=== PATIENT | male | born 1990 | race Caucasian/White ===

== ENCOUNTER 2020-12-19 13:23 | Inpatient (IN) | payer BC, OTHER ==
[~2020-12-19] VITALS: Ht 180.3 cm; Wt 83.1 kg
--- NOTE | ~2020-12-19 | O ---
[facility] [place] [address] OPERATIVE REPORT Name: BECCA LEON Room #: 448-P [facility] IN M.R.#: [id number] Admission: 12/19/20 Attend Phys: Ysair Modi MD Discharge: Date of : 89 Report #: [id number] THIS REPORT FOR: cc: Sienna Sanchez NP, Margaret NP Patterson, Jonathan D. MD ~ PREOPERATIVE DIAGNOSIS: Chronic cholecystitis. POSTOPERATIVE DIAGNOSIS: Chronic cholecystitis. OPERATION: Laparoscopic cholecystectomy. SURGEON: Krishna Li MD ANESTHESIA: General. ESTIMATED BLOOD LOSS: Minimal. SPECIMEN: Gallbladder. DESCRIPTION OF PROCEDURE: After informed consent was obtained, the patient was brought to the operating room and placed supine. SCDs were placed and working, preoperative antibiotics were administered, general anesthesia was induced. The abdomen was prepped and draped in the usual sterile fashion. A 10 mm incision was made below the umbilicus. Fascia was incised and a trocar was placed. Pneumoperitoneum was established. Three right upper quadrant 5 mm ports were placed under direct vision. The patient was placed in the reverse Trendelenburg position. The gallbladder was then grasped and retracted cephalad. Infundibulum was grasped and retracted laterally. I dissected out the cystic duct and cystic artery. Cystic plate was identified. Cystic duct and artery were clipped and ligated leaving 2 clips on the remaining duct and one on the remaining artery. Gallbladder was then taken off the liver bed with electrocautery. It was placed into an Endopouch and removed. The fascia was then closed with a ampagh-ul-lezgb 0 Vicryl. Skin was closed with 4-0 Monocryl. Incisions were sealed with Dermabond. COMPLICATIONS: None. DISPOSITION: The patient was taken to recovery in satisfactory condition. By: 1542 1550 Krishna Li MD /nt
[2020-12-19 13:26] VITALS: BP 163/116
[2020-12-19 14:12] LABS: ABSOLUTE NEUTROPHILS 8.5 thou/uL (1.4-8.2); BASOPHILS 0.3 % (0.0-2.0); EOSINOPHILS 0.3 % (0.0-3.0); HEMATOCRIT 44.6 % (42.0-52.0); HEMOGLOBIN 14.7 gm/dL (14.0-18.0); LYMPHOCYTES 14.5 % (24.0-44.0); MCH 30.4 pg (26.0-34.0); MONOCYTES 7.9 % (1.0-8.0); PLATELET COUNT 230 thou/uL (150-400); RBC 4.85 mil/uL (4.50-6.00); RDW 12.9 % (10.5-14.5); WBC 11.1 thou/uL (4.0-11.0)
[2020-12-19 14:23] LABS: CALCIUM 9.6 mg/dL (8.5-10.1); POTASSIUM 3.7 mmol/L (3.5-5.1)
[2020-12-19 14:29] LABS: ALBUMIN 4.6 g/dL (3.4-5.0); APTT 26.6 Seconds (24.5-32.8); PROTIME 10.7 Seconds (9.3-11.4); TOTAL BILIRUBIN 0.5 mg/dL (0.2-1.0); TOTAL PROTEIN 7.5 g/dL (6.4-8.2)
--- NOTE | 2020-12-19 14:33 | EKG ---
[place] [address] [address] [place] [address] ELECTROCARDIOGRAM REPORT Name: BECCA LEON [id number] Admission: 12/19/20 Attend Phys: Discharge: Date of : 89 Report #: [id number] [facility] ED Test Date: 2020-12-19 Test Time: 14:15:09 Pat Name: BECCA LEON Department: Room: Gender: Phlebotomy Director: : 1990 Requested By: Lissette Chavis Order Number: [id number] MD: Gurjit Bunch Measurements Intervals Corea Rate: 92 P: 71 CO: 149 QRS: 56 QRSD: 86 T: 29 QT: 349 QTc: 432 Interpretive Statements Sinus rhythm No previous ECG available for comparison Electronically Signed On 12-19-2020 14:33:35 SENIOR ENGINEERING TECH by Gurjit Bunch [email or web address] <ELECTRONICALLY SIGNED> By: Gurjit Bunch MD, [facility] 12/19/20 1433 1415 1415 Gurjit Bunch MD, FACC /EPI
[2020-12-19 17:01] LABS: URINE BILIRUBIN NEGATIVE (Negative); URINE BLOOD NEGATIVE (Negative); URINE CLARITY CLEAR; URINE COLOR YELLOW; URINE GLUCOSE-RANDOM* NEGATIVE (Negative); URINE KETONES NEGATIVE (Negative); URINE LEUKOCYTES-REFLEX NEGATIVE (Negative); URINE NITRITE-REFLEX NEGATIVE (Negative); URINE PROTEIN (DIPSTICK) NEGATIVE (Negative); URINE SPECIFIC GRAVITY <= 1.005 (1.005-1.035); URINE UROBILINOGEN 0.2 E.U./dl (0.2-1.0)
[2020-12-19 18:21] LABS: FOLIC ACID 13.3 ng/mL (8.6-58.9)
[2020-12-19 19:53] VITALS: BP 128/77
[2020-12-19 20:00] VITALS: BP 127/92
[2020-12-19 20:40] VITALS: BP 132/74
--- NOTE | 2020-12-20 02:15 | NUR ---
PT ARRIVED FROM THE ER. A&OX4 C/0 ABD PAIN 7/10 MANAGED BY PO AND IV PAIN MEDS IV INTACT AND FLUIDS INFUSING. ADMISSION DONE AND PT ORIENTED TO THE UNIT. NPO AT MIDNIGHT FOR PIPIDA TEST TOMORROW. CALL LIGHT AT REACH AND WILL CONT TO MONITOR.
[2020-12-20 05:26] LABS: ABSOLUTE NEUTROPHILS 3.8 thou/uL (1.4-8.2); BASOPHILS 0.4 % (0.0-2.0); EOSINOPHILS 1.6 % (0.0-3.0); HEMATOCRIT 38.7 % (42.0-52.0); HEMOGLOBIN 12.8 gm/dL (14.0-18.0); LYMPHOCYTES 32.8 % (24.0-44.0); MONOCYTES 10.5 % (1.0-8.0); PLATELET COUNT 175 thou/uL (150-400); POLYS 54.7 % (36.0-66.0); RBC 4.12 mil/uL (4.50-6.00); WBC 6.9 thou/uL (4.0-11.0)
[2020-12-20 05:34] LABS: CALCIUM 8.4 mg/dL (8.5-10.1); CREATININE 0.9 mg/dL (0.7-1.3); MAGNESIUM 2.3 mg/dL (1.8-2.4); POTASSIUM 3.8 mmol/L (3.5-5.1)
[2020-12-20 07:47] VITALS: BP 139/69
--- NOTE | 2020-12-20 11:32 | NUR ---
ASSESSMENT-PT LIVES AT HOME WITH HIS AND PARENT. PT NOTMALLY INDEPENT OF ADLS, AMBULATION, WORKING AND DRIVING. NOW WITH CONSIDERABLE RIGHT QUAD PAIN. PT VOICES NO CONCERNS RELATED TO DISCHARGE. PT HAVING A PIPIDA SCAN TODAY.
[2020-12-20 15:41] VITALS: BP 124/83
--- NOTE | 2020-12-20 18:12 | NUR ---
ASSUMED PATIENT CARE AT 0700. PATIENT WENT TO PIPDA SCAN AT 1230 AND BACK TO UNIT AT 1420. PATIENT STILL HAS RUQ PAIN. NO NAUSEA. WAITING FOR TEST RESULT. WILL KEEP MONITOR.
[2020-12-20 20:15] VITALS: BP 128/81
[2020-12-21 08:44] VITALS: BP 118/77
--- NOTE | 2020-12-21 08:51 | NUR ---
RECEIVED CARE OF THIS PATIENT AT 1900. PATIENT ALERT AND ORIENTED X4. UP AD DA. C/O PAIN, MED GIVEN. NPO SINCE SD FOR POSSIBLE EGD TODAY. SLEPT MOST OF NIGHT.
[2020-12-21 15:44] VITALS: BP 132/85
[2020-12-21 17:08] VITALS: BP 149/95
--- NOTE | 2020-12-21 18:45 | NUR ---
PT ASSESSED AT START OF SHIFT. NPO FOR OR AT 1115. PT AT BEDSIDE. RETURNED AT 1515 ALERT AND IN MINIMAL DISCOMFORT. ABD LAP SITES W/ STERISTRIPS. ICE BAG TO UMBILICUS AREA FOR PAIN. UP TO THE BATHROOM POSTOP AND BELCHED SEVERAL TIMES RELIEVING SOME DISCOMFORT. VOIDED 600MLS PER URINAL. IV INFUSING. EATING SM AMTS BLAND FOOD.
[2020-12-21 19:35] VITALS: BP 150/98
--- NOTE | 2020-12-22 08:09 | NUR ---
PT AMBULATING TO BATHROOM INDEPENDENTLY AND IS TOLERATING WELL. DILAUDID AND LORTAB PROVIDING PAIN RELIEF. DENIES NAUSEA. RESTING COMFORTABLY. NO NEEDS VOICED. CALL LIGHT WITHIN REACH. FREQUENT OBSERVATION.
[2020-12-22 08:12] VITALS: BP 116/59
[2020-12-22] MEDS ORDERED: ACETAMINOPHEN325 M1 PO (11:14)
[2020-12-22] MEDS ORDERED: HYDROCODON-ACE1 EAC7 PO (11:14)
[2020-12-22 11:49] VITALS: BP 116/59
--- NOTE | 2020-12-22 12:13 | NUR ---
PT ASSESSED AT START OF SHIFT. DOING MUCH BETTER TODAY. AMBULATING THE HALLS. EATING AND DRINKING W/O NAUSEA/PAIN. LAP SITES DRY. USE ICE PACK TO ABD IN ADDITION TO PAIM MED. DISCHARGE TO HOME AT THIS TIME AFTER INSTRUCTIONS.
--- NOTE | 2020-12-24 17:06 | PATH ---
[facility] [place] [address] PATHOLOGY RPT PROCEDURE Name: BINU LEON S Room #: 448-P [facility] IN .R.#: [id number] Admission: 12/19/20 Date of : [birth year] Discharge: 12/22/20 Report #: [id number] Path Case #: [id number] [facility] Accession Number: [id number] . 01 Material submitted: . gallbladder - GALLBLADDER . 01 Clinical history: . CHOLECYSTITIS . 02 Diagnosis: Gallbladder, cholecystectomy: - Mild chronic cholecystitis. (IUV:nanotechnology engineering technologist; 12/24/2020) R 12/24/2020 [facility] Local . 02 Electronically signed: . Viky Kulkarni MD, Pathologist NPI- [id number] . 01 Gross description: . The specimen is received in formalin labeled "Binu Leon gallbladder" and consists of a punctured smooth green gallbladder measuring 5.7 x 2.7 x 1.8 cm. The margin is inked black. Opening reveals a lumen filled with viscous green bile and no calculi. The mucosa is green and velvety with an average wall thickness of 0.2 cm. No masses are identified. Athletic Equipment Custodian sections are submitted in A1. (SDY; 12/23/2020) SYU/SYU 12/23/2020 1132 Local . 02 Pathologist provided ICD-10: K81.1 . 02 CPT . 807318 Specimen Comment: A courtesy copy of this report has been sent to [phone], [phone] Specimen Comment: [phone], Specimen Comment: Report sent to ,DR SIERRA / DR MARQUEZ Performed at: [address], [place] [id number] MD Ramez Gonsalez MD Phone: [phone] Performed at: [address] [id number] MD Viky Kulkarni MD Phone: [phone]
== END 2020-12-22 12:19 | disposition home or self-care (01) | DRG 419 ==
LOC: ER 13:23 → 4S 17:28 → ER 18:19 → EROBS 18:19 → 4S 20:15
PROVIDERS: Nurse Practitioner; Physician Assistant; ADMIT Internal Medicine; ATTEND Internal Medicine
PROC: 0FT44ZZ Resection of Gallbladder, Percutaneous Endoscopic Approach (ICD-10-PCS; principal; 2020-12-21)
DX: K81.1 Chronic cholecystitis (principal); Z20.822 Contact with and (suspected) exposure to COVID-19; I10 Essential (primary) hypertension; K21.9 Gastro-esophageal reflux disease without esophagitis; I16.0 Hypertensive urgency; K82.8 Other specified diseases of gallbladder; Z90.49 Acquired absence of other specified parts of digestive tract; Z86.010 Personal history of colon polyps; Z80.0 Family history of malignant neoplasm of digestive organs
CPT/HCPCS: 10102; 10195; 50010; 50101; 50411; 50555; 50558; 51489; 52265; 52266; 53307; 53314; 55245; 56462; 56525; 56526; 62110; 62900; 70005

== ENCOUNTER 2021-01-13 08:28 | Emergency (ER) | payer BC, OTHER ==
[~2021-01-13] VITALS: Ht 180.3 cm; Wt 79.4 kg
[~2021-01-13 08:28] MED LIST: ACETAMINOPHEN325 M1 PO; HYDROCODON-ACE1 EAC7 PO
[2021-01-13 09:33] LABS: URINE BILIRUBIN NEGATIVE (Negative); URINE BLOOD NEGATIVE (Negative); URINE CLARITY CLEAR; URINE COLOR YELLOW; URINE GLUCOSE-RANDOM* NEGATIVE (Negative); URINE KETONES NEGATIVE (Negative); URINE LEUKOCYTES-REFLEX NEGATIVE (Negative); URINE NITRITE-REFLEX NEGATIVE (Negative); URINE PROTEIN (DIPSTICK) NEGATIVE (Negative); URINE SPECIFIC GRAVITY >= 1.030 (1.005-1.035); URINE UROBILINOGEN 0.2 E.U./dl (0.2-1.0)
[2021-01-13 09:35] LABS: ABSOLUTE NEUTROPHILS 3.1 thou/uL (1.4-8.2); BASOPHILS 0.9 % (0.0-2.0); EOSINOPHILS 4.4 % (0.0-3.0); HEMOGLOBIN 15.4 gm/dL (14.0-18.0); LYMPHOCYTES 29.6 % (24.0-44.0); MCH 30.3 pg (26.0-34.0); MCHC 32.7 g/dL (28.0-37.0); MCV 92.5 fL (80.0-100.0); MONOCYTES 12.6 % (1.0-8.0); PLATELET COUNT 220 thou/uL (150-400); POLYS 52.5 % (36.0-66.0); RBC 5.09 mil/uL (4.50-6.00); RDW 12.5 % (10.5-14.5); WBC 5.9 thou/uL (4.0-11.0)
[2021-01-13 09:38] LABS: CALCIUM 9.5 mg/dL (8.5-10.1); CREATININE 1.1 mg/dL (0.7-1.3); POTASSIUM 4.2 mmol/L (3.5-5.1)
[2021-01-13 09:44] LABS: ALBUMIN 4.2 g/dL (3.4-5.0); TOTAL BILIRUBIN 0.4 mg/dL (0.2-1.0); TOTAL PROTEIN 7.3 g/dL (6.4-8.2)
[2021-01-13 12:08] LABS: PLATELET ESTIMATE NORMAL
[2021-01-13 14:39] VITALS: BP 130/73
== END 2021-01-13 15:05 | disposition home or self-care (01) ==
LOC: ER 08:28
PROVIDERS: Emergency Medicine
DX: R10.11 Right upper quadrant pain (principal); I10 Essential (primary) hypertension; Z90.49 Acquired absence of other specified parts of digestive tract; Z90.89 Acquired absence of other organs; Z88.8 Allergy status to other drugs, medicaments and biological substances